=== PATIENT | female | born 1960 | race Caucasian/White ===

== ENCOUNTER → 2016-11-29 | Outpatient (CLI) | payer BC ==
[~2016-11-29] MED LIST: CETI10CA PO; ESTR1TAB24 PO; HYDR-3720 PO; IBP800T PO; MEDR2.5T PO; MTP100TCR PO
--- NOTE | 2016-11-30 08:13 | Diagnostic Imaging Report ---
Bilateral screening mammogram The current study was also evaluated with a Computer Aided Detection (CAD) system. Indication: Screening. No current complaints stated on the questionnaire. COMPARISON: 09/28/15 FINDINGS: The breasts are composed of heterogeneously dense parenchyma which may decrease mammographic sensitivity. Scattered benign-appearing calcifications are seen. There is an asymmetry along the lower posterior aspect of the right MLO view measuring 1 cm in size with no definitive correlate on the CC projection. The left breast appears unchanged. IMPRESSION: Focal compression views and ultrasound evaluation for posterior slightly inferior right MLO view asymmetry is recommended. ACR BI-RADS Category 0: Incomplete. (Needs additional imaging evaluation). Result letter will be mailed to the patient. Note: At least 10% of breast cancer is not imaged by mammography. Dictated by: Dictated on workstation # [id number]
== END ==
LOC: RAD 09:15
PROVIDERS: ATTEND Obstetrics & Gynecology
DX: Z12.31 Encounter for screening mammogram for malignant neoplasm of breast (principal); R92.8 Other abnormal and inconclusive findings on diagnostic imaging of breast
CPT/HCPCS: 77067

== ENCOUNTER → 2016-12-10 | Outpatient (CLI) | payer BC ==
--- NOTE | 2016-12-10 09:02 | Diagnostic Imaging Report ---
Right breast diagnostic mammogram. INDICATION: Asymmetry along the posterior slightly inferior aspect of the right breast. CAD is utilized. FINDINGS: Focal compression view and lateral projection demonstrate less prominent asymmetry in favor of summation artifact of parenchyma. IMPRESSION: The previously seen asymmetry is likely related to summation artifact of parenchyma. Ultrasound evaluation pending. ACR BI-RADS Category 0: Incomplete. (Needs additional imaging evaluation). Result letter will be mailed to the patient. Note: At least 10% of breast cancer is not imaged by mammography. Dictated by: Dictated on workstation # [id number]
--- NOTE | 2016-12-10 09:52 | Diagnostic Imaging Report ---
EXAMINATION: Right breast ultrasound. INDICATION: Asymmetry along the posterior aspect of the right MLO view. FINDINGS: The four-quadrants and retroareolar region of the right breast were scanned with no underlying abnormality seen. IMPRESSION: Negative study. The previously seen asymmetry appears to resolve on additional mammographic views in favor of summation artifact of parenchyma. Followup screening mammography is recommended. ACR BI-RADS Category 1: Negative. Result letter will be mailed to the patient. Note: At least 10% of breast cancer is not imaged by mammography. Dictated by: Dictated on workstation # [id number]
== END | disposition home or self-care (01) ==
LOC: RAD 08:19
PROVIDERS: ATTEND Obstetrics & Gynecology
DX: R92.8 Other abnormal and inconclusive findings on diagnostic imaging of breast (principal)

== ENCOUNTER → 2017-08-19 | Outpatient (CLI) | payer BC ==
--- NOTE | 2017-08-19 08:44 | Diagnostic Imaging Report ---
PROCEDURE: US Thyroid. TECHNIQUE: Multiple real-time grayscale images were obtained of the thyroid in various projections. INDICATION: Prior history of left thyroidectomy for thyroid nodules. No prior thyroid ultrasound is available for comparison. The left thyroid gland is surgically absent. No residual thyroid tissue is present. The right lobe of the thyroid measures 4.9 x 1.3 x 2.0 cm. Right lobe is fairly homogeneous. There are 2 tiny nodules in the right lobe, largest in the upper pole measuring approximately 7 mm x 3 mm x 5 mm. There is a smaller 4 mm x 3 mm x 4 mm nodule in the mid right lobe. No dominant thyroid mass is detected. IMPRESSION: 1. Status post left thyroidectomy. 2. Subcentimeter right lobe thyroid nodules. No dominant thyroid mass is detected. Dictated by: Dictated on workstation # [id number]
== END ==
LOC: RAD 07:50
PROVIDERS: ATTEND Family Medicine
DX: E04.2 Nontoxic multinodular goiter (principal); Z90.89 Acquired absence of other organs
CPT/HCPCS: 76536

== ENCOUNTER → 2018-06-09 | Outpatient (CLI) | payer BC ==
--- NOTE | 2018-06-09 21:04 | Diagnostic Imaging Report ---
INDICATION: Screening. EXAMINATION: Digital mammogram bilateral screening with 3-D tomosynthesis. The study was compared to prior exams of 11/29/2016, 09/28/2015 and 07/22/2014. At this time, there are no current complaints. The current study was also evaluated with a Computer Aided Detection (CAD) system. FINDINGS: The fibroglandular tissue in both breasts is heterogeneously dense. This does limit the sensitivity of this exam. Overall, there does not appear to have been any significant change when compared to the prior study. No primary or secondary sign of malignancy is noted. IMPRESSION: There is no radiographic evidence for malignancy. ACR BI-RADS Category 1: Negative. Result letter will be mailed to the patient. Note: At least 10% of breast cancer is not imaged by mammography. Dictated by: Dictated on workstation # [id number]
== END ==
LOC: RAD 08:09
PROVIDERS: ATTEND Obstetrics & Gynecology
DX: Z12.31 Encounter for screening mammogram for malignant neoplasm of breast (principal)
CPT/HCPCS: 77067

== ENCOUNTER → 2019-02-06 | Outpatient (CLI) | payer BC ==
--- NOTE | 2019-02-06 12:40 | Diagnostic Imaging Report ---
PROCEDURE: US Thyroid. TECHNIQUE: Multiple real-time grayscale images were obtained of the thyroid in various projections. INDICATION: Thyroid nodules, followup. Correlation is made with prior study from 08/19/2017. Left lobe is surgically absent. The right lobe of the thyroid measures 5.4 x 1.5 x 2.1 cm. The isthmus is 2 mm in thickness. There are multiple colloid cysts involving the right lobe of the thyroid. Previously noted nodules appear stable. Nodule at the isthmus measured approximately 8 mm x 10 mm x 6 mm. This has a cystic appearance centrally. There is questionable thyroid heterogeneity versus a nodule inferiorly measuring 14 mm x 11 mm x 6 mm. No dominant mass is seen. IMPRESSION: Right lobe thyroid nodules. Questionable new nodules present since exam from 6 months earlier. Continued followup thyroid ultrasound is recommended in 6 months to show continued stability. Dictated by: Dictated on workstation # [id number]
== END ==
LOC: RAD 08:48
PROVIDERS: ATTEND Family Medicine
DX: E04.2 Nontoxic multinodular goiter (principal)
CPT/HCPCS: 76536

== ENCOUNTER → 2019-05-26 | Outpatient (CLI) | payer BC ==
--- NOTE | 2019-05-26 09:10 | Diagnostic Imaging Report ---
HISTORY: Low back pain. TECHNIQUE: Three views of the lumbar spine. COMPARISON: None. FINDINGS: The last well-formed disc space at level L5-S1. There is trace retrolisthesis at L3-L4. Mild degenerative changes with small endplate osteophytes are seen at multiple levels in the lumbar spine. There is mild disc height loss at L1-L2, L2-L3, and L3-L4. There is moderate facet arthropathy in the lower lumbar spine. There is facet arthropathy in the lower lumbar spine. The bilateral sacroiliac joints are patent. The 12th ribs appear diminutive. IMPRESSION: 1. Vade-sp-vivcjnjw degenerative changes in the lumbar spine with no acute osseous abnormality seen. Dictated by: Dictated on workstation # [id number]
--- NOTE | 2019-05-26 09:11 | Diagnostic Imaging Report ---
HISTORY: Low back pain, coccyx pain TECHNIQUE: 3 views of the sacrum and coccyx COMPARISON: None FINDINGS: No acute fracture or malalignment is seen in the sacrum and coccyx. The sacroiliac joints are patent. No cortical erosions are seen. IMPRESSION: 1. No acute osseous abnormality seen in the sacrum and coccyx. Dictated by: Dictated on workstation # [id number]
== END ==
LOC: RAD 08:34
PROVIDERS: ATTEND Nurse Practitioner Family
DX: M47.816 Spondylosis without myelopathy or radiculopathy, lumbar region (principal); M53.3 Sacrococcygeal disorders, not elsewhere classified
CPT/HCPCS: 72100; 72220

== ENCOUNTER → 2019-06-12 | Outpatient (CLI) | payer BC ==
--- NOTE | 2019-06-12 13:38 | Diagnostic Imaging Report ---
PROCEDURE: MRI lumbar spine. TECHNIQUE: Multiplanar, multisequence MRI of the lumbar spine was performed without contrast. INDICATION: Low back pain. FINDINGS: Examination is somewhat limited due to motion. Lumbar spinal curvature and alignment are unremarkable. Vertebral body heights are maintained. Conus medullaris has a normal appearance at the L1 level. There is desiccation of the L2-L3 disc with mild diffuse disc bulging. This results in no significant spinal or neural foraminal stenosis. At the L3-L4 level, there is also disc bulging causing mild bilateral neural foraminal stenosis. At L4-L5, there is mild diffuse disc bulging with what appears to be asymmetric ligamentum flavum hypertrophy or possible synovial hypertrophy arising from the left L4-L5 neural foramen resulting in high-grade left lateral recess stenosis with moderate trefoil-type spinal stenosis. There is moderately severe bilateral neural foraminal stenosis as well. No marrow signal abnormalities identified to indicate a fracture. 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 Dictated by: Dictated on workstation # [id number]
== END ==
LOC: RAD 12:21
PROVIDERS: ATTEND Nurse Practitioner Family
DX: M51.36 Other intervertebral disc degeneration, lumbar region (principal); M48.061 Spinal stenosis, lumbar region without neurogenic claudication
CPT/HCPCS: 72148

== ENCOUNTER → 2019-08-11 | Outpatient (CLI) | payer BC ==
--- NOTE | 2019-08-11 11:05 | Diagnostic Imaging Report ---
PROCEDURE: US Thyroid. TECHNIQUE: Multiple real-time grayscale images were obtained of the thyroid in various projections. INDICATION: Thyroid nodule on previous partial thyroidectomy. FINDINGS: Right lobe of thyroid measures 5.1 x 1.6 x 1.8 cm. There is a cyst superiorly measuring 7 mm. There is a hypoechoic nodule in the upper central thyroid measuring 8 mm. There is a heterogeneous nodule slightly more inferior measuring 1 cm. There is hypoechoic nodule inferiorly measuring 6 mm. These are all similar measurements to the prior examination from 02/06/2019. Isthmus measures 0.29 cm. Left lobe of the thyroid surgically absent. IMPRESSION: Multiple thyroid nodules as described. These are essentially stable compared to prior examination from 02/06/2019. Dictated by: Dictated on workstation # [id number]
== END ==
LOC: RAD 08:04
PROVIDERS: ATTEND Otolaryngology Otolaryngology/Facial Plastic Surgery
DX: E04.1 Nontoxic single thyroid nodule (principal)
CPT/HCPCS: 76536

== ENCOUNTER → 2019-12-14 | Outpatient (CLI) | payer BC ==
--- NOTE | 2019-12-14 09:25 | Diagnostic Imaging Report ---
INDICATION: Routine screening. COMPARISON: 06/09/2018 and 11/29/2016. TECHNIQUE: 2D and 3D bilateral screening mammography was performed with CAD. FINDINGS: Both breasts are heterogeneously dense, limiting the sensitivity of mammography. The parenchymal pattern is stable. No dominant mass or malignant appearing microcalcifications are seen. The axillae are unremarkable. IMPRESSION: No mammographic features suspicious for malignancy are identified. ACR BI-RADS Category 1: Negative. Result letter will be mailed to the patient. Note: At least 10% of breast cancer is not imaged by mammography. Dictated by: Dictated on workstation # [id number]
== END ==
LOC: RAD 08:01
PROVIDERS: ATTEND Obstetrics & Gynecology
DX: Z12.31 Encounter for screening mammogram for malignant neoplasm of breast (principal)
CPT/HCPCS: 77063; 77067

== ENCOUNTER → 2020-08-03 | Outpatient (CLI) | payer BC ==
--- NOTE | 2020-08-03 15:11 | Diagnostic Imaging Report ---
INDICATION: Multinodular goiter. TECHNIQUE: Grayscale sonographic images of the thyroid gland. CORRELATION STUDY: 08/11/2019. FINDINGS: RIGHT LOBE: Elongated at 5.2 x 1.6 x 1.6 cm. Diffuse heterogeneous echotexture along with increased vascularity present. There are innumerable multiple small nodules throughout the right lobe. Overall, likely relatively stable. Definitive concerning more focal dominant mass does not appear to be suggested. LEFT LOBE: Surgically resected. IMPRESSION: 1. Elongated right lobe with a heterogeneous multinodular appearance. No definitive new or enlarging dominant thyroid mass. 2. Surgically resected left lobe. (Normal gland size: 4-5 x 2 x 2 cm) Dictated by: Dictated on workstation # [id number]
== END ==
LOC: RAD 14:45
PROVIDERS: ATTEND Otolaryngology Otolaryngology/Facial Plastic Surgery
DX: E04.2 Nontoxic multinodular goiter (principal); Z90.89 Acquired absence of other organs
CPT/HCPCS: 76536

== ENCOUNTER → 2021-02-27 | Outpatient (CLI) | payer BC ==
--- NOTE | 2021-02-27 08:45 | Diagnostic Imaging Report ---
INDICATION: Routine screening. COMPARISON: 12/14/2019 and 06/09/2018. TECHNIQUE: 2D and 3D bilateral screening mammography was performed with CAD. FINDINGS: Both breasts are heterogeneously dense, limiting the sensitivity of mammography. There are benign calcifications present. No mass or malignant-appearing microcalcifications are seen. The axillae are unremarkable. IMPRESSION: No mammographic features suspicious for malignancy are identified. ACR BI-RADS Category 2: Benign findings. Result letter will be mailed to the patient. Note: At least 10% of breast cancer is not imaged by mammography. Dictated by: Dictated on workstation # [id number]
== END ==
LOC: RAD 07:48
PROVIDERS: ATTEND Obstetrics & Gynecology
DX: Z12.31 Encounter for screening mammogram for malignant neoplasm of breast (principal)
CPT/HCPCS: 77063; 77067

== ENCOUNTER → 2022-06-20 | Outpatient (CLI) | payer BC ==
--- NOTE | 2022-06-21 09:42 | Diagnostic Imaging Report ---
INDICATION: Routine screening. Comparison is made with prior mammogram 02/27/2021 and 12/14/2019. 2-D and 3-D bilateral screening mammography was performed with CAD. Both breasts are heterogeneously dense, limiting the sensitivity of mammography. The parenchymal pattern appears stable. No dominant mass or malignant-appearing microcalcifications are seen. Axillae are unremarkable. IMPRESSION: No mammographic features suspicious for malignancy are identified. ACR BI-RADS Category 1: Negative. Result letter will be mailed to the patient. Note: At least 10% of breast cancer is not imaged by mammography. BI-RADS Category 1 Dictated by: Dictated on workstation # [id number]
== END ==
LOC: RAD 15:43
PROVIDERS: ATTEND Obstetrics & Gynecology
DX: Z12.31 Encounter for screening mammogram for malignant neoplasm of breast (principal)
CPT/HCPCS: 77063; 77067

== ENCOUNTER → 2022-08-23 | Outpatient (CLI) | payer BC ==
--- NOTE | 2022-08-23 16:31 | Diagnostic Imaging Report ---
PROCEDURE: US Thyroid. TECHNIQUE: Multiple real-time grayscale images were obtained of the thyroid in various projections. INDICATION: Multinodular goiter. COMPARISON: 08/03/2020. FINDINGS: Right thyroid lobe: Size (cm): 5.5 x 1.7 x 2.0 Echotexture: Mildly heterogeneous. Vascularity: Normal. Nodules: None. Isthmus: Size (cm): 0.3 Nodules: None. Left thyroid lobe: Absent. No residual tissue is seen. IMPRESSION: 1. Mildly heterogeneous right thyroid with no discrete nodule seen. 2. Left hemithyroidectomy. Dictated by: Dictated on workstation # [id number]
== END ==
LOC: RAD 14:58
PROVIDERS: ATTEND Otolaryngology Otolaryngology/Facial Plastic Surgery
DX: E04.2 Nontoxic multinodular goiter (principal); Z98.890 Other specified postprocedural states
CPT/HCPCS: 76536